=== PATIENT | male | born 1990 | race Caucasian/White ===

== ENCOUNTER 2016-06-29 09:18 | Emergency (ER) | payer OTHER ==
[2016-06-29] MEDS ORDERED: SODIUM CHLORIDE 0.9% 2,000 ML IV STA (09:53)
[2016-06-29] MEDS ORDERED: METOCLOPRAMIDE 5 MG/ML 2 ML VIAL IVP STA (09:53)
[2016-06-29] MEDS ORDERED: ACETAMINOPHEN IV (For NPO) 1,000 MG in EMPTY BAG 1 BAG IVPB ONE (09:53)
--- NOTE | 2016-06-29 09:56 | ED ---
Nausea/Vomiting/Diarrhea HPI - General Chief complaint: Nausea/Vomiting/Diarrhea Stated complaint: lost 30 lbs in a week, vomiting, acid stomach Time Seen by Provider: 06/29/16 09:36 Source: patient, RN notes reviewed Mode of arrival: ambulatory Limitations: no limitations - History of Present Illness Initial comments: 26-year-old male presents to the emergency department with a chief complaint of nausea vomiting and diarrhea. Patient states he's had nausea vomiting and diarrhea for the past week or so. Patient states he feels as if he's lost 30 pounds. States every time we will vomiting following it. Patient states he is now getting burning up his esophagus vomiting. Patient admits mild epigastric pain. Patient states she has not eaten much is not had bowel movements but does have some diarrhea take bony stool. Patient states he has felt hot and cold throughout this as well. Patient states he is concerned because he just was not getting any better so he thought that he should be seen. Patient states he does donate plasma and he did do it quite often so he is wondering if maybe that has something to do with how long he has been L. Patient denies any other symptoms at this time. Patient denies any recent shortness of breath, chest pain, back pain, numbness or tingling, dysuria or hematuria, constipation , headaches or visual changes, or any other current symptoms. - Related Data Previous Rx's Medication Instructions Recorded Famotidine [Pepcid] 20 mg PO BID #10 tablet 06/29/16 Ibuprofen [Motrin] 600 mg PO Q6HR PRN #20 tab 06/29/16 Allergies Allergy/AdvReac Type Severity Reaction Status Date / Time No Known Allergies Allergy Verified 06/29/16 11:31 Review of Systems ROS Statement: Those systems with pertinent positive or pertinent negative responses have been documented in the HPI. ROS Other: All systems not noted in ROS Statement are negative. Past Medical History Past Medical History: GERD/Reflux, Hypertension Additional Past Medical History / Comment(s): Gastritis, GALLBLADDER ATTACKS STARTING BEGINNING OF 2014 History of Any Multi-Drug Resistant Organisms: None Reported Past Surgical History: Cholecystectomy Past Anesthesia/Blood Transfusion Reactions: Unable to Obtain Past Psychological History: ADD/ADHD, Bipolar Smoking Status: Current every day smoker Past Alcohol Use History: None Reported, Daily Additional Past Alcohol Use History / Comment(s): 20 PACK OR BEER DAILY Past Drug Use History: Cocaine, Marijuana, Methamphetamine Additional Drug Use History / Comment(s): CURRENT MARIJUANA DAILY. PAST COCAINE USE 1 YEAR AGO. METHAMPHETAMINE USE APPROX 2 WEEKS AGO - Past Family History Father Family Medical History: No Reported History General Exam - General Exam Comments Initial Comments: General: The patient is awake and alert, in no distress, and does not appear acutely ill. Eye: Pupils are equal, round and reactive to light, extra-ocular movements are intact; there is normal conjunctiva bilaterally. No signs of icterus. Ears, nose, mouth and throat: There are moist mucous membranes and no oral lesions. Neck: The neck is supple, there is no tenderness. Cardiovascular: There is a regular rate and rhythm. No murmur, rub or gallop is appreciated. Respiratory: Lungs are clear to auscultation, respirations are non-labored, breath sounds are equal. No wheezes, stridor, rales, or rhonchi. Gastrointestinal: Soft, non-distended, non-tender abdomen without masses or organomegaly noted. There is no rebound or guarding present. No CVA tenderness. Bowel sounds are unremarkable. Back: There is no tenderness to palpation in the midline. There is no obvious deformity. No rashes noted. Musculoskeletal: Normal ROM, no tenderness, There is no pedal edema. There is no calf tenderness or swelling. Sensation intact. Pulses equal bilaterally 2+. Neurological: CN II-XII intact, There are no obvious motor or sensory deficits. Coordination appears grossly intact. Speech is normal. Skin: Skin is warm and dry and no rashes or lesions are noted. Psychiatric: Cooperative, appropriate mood & affect, normal judgment. Limitations: no limitations Course Vital Signs 06/29/16 06/29/16 06/29/16 09:43 10:19 11:36 Temperature 99.4 F Pulse Rate 105 H Pulse Rate [ 121 H 118 H Sitting] Pulse Rate [ 117 H 126 H Standing] Pulse Rate [ 100 108 H Supine] Respiratory 22 Rate Blood Pressure 141/91 Blood Pressure 138/83 143/86 [Sitting] Blood Pressure 132/79 136/85 [Standing] Blood Pressure 140/89 141/76 [Supine] O2 Sat by Pulse 96 Oximetry Procedures - Procedures Initial comment: Patient states he is much better at this time. Medical Decision Making - Medical Decision Making 26-year-old male presents emergency Department chief complaint of nausea vomiting. At this time patient was found to be orthostatic on presentation after 2 L orthostatics has resolved. Patient still does have some tachycardia however there is still mild low-grade fever. We will give Motrin at this time. We discussed the patient is influenza be positive. We discussed continuing Motrin Tylenol home. We will give him Zofran for his nausea vomiting. Patient is in good and all questions have been answered. He will be discharged. - Lab Data Result diagrams: 06/29/16 10:10 06/29/16 10:10 Lab Results 06/29/16 06/29/16 06/29/16 Range/Units 10:10 10:10 10:10 WBC 8.0 (3.8-10.6) k/uL RBC 5.78 (4.30-5.90) m/uL Hgb 17.1 (13.0-17.5) gm/dL Hct 51.0 (39.0-53.0) % MCV 88.2 (80.0-100.0) fL MCH 29.6 (25.0-35.0) pg MCHC 33.6 (31.0-37.0) g/dL RDW 13.7 (11.5-15.5) % Plt Count 167 (150-450) k/uL Neutrophils % 74 % Lymphocytes % 17 % Monocytes % 6 % Eosinophils % 0 % Basophils % 0 % Neutrophils # 5.9 (1.3-7.7) k/uL Lymphocytes # 1.4 (1.0-4.8) k/uL Monocytes # 0.5 (0-1.0) k/uL Eosinophils # 0.0 (0-0.7) k/uL Basophils # 0.0 (0-0.2) k/uL Sodium 137 (137-145) mmol/L Potassium 4.2 (3.5-5.1) mmol/L Chloride 99 (98-107) mmol/L Carbon Dioxide 21 L (22-30) mmol/L Anion Gap 17 mmol/L BUN 23 H (9-20) mg/dL Creatinine 1.14 (0.66-1.25) mg/dL Est GFR (MDRD) Af Amer >60 (>60 ml/min/1.73 sqM) Est GFR (MDRD) Non-Af >60 (>60 ml/min/1.73 sqM) Glucose 109 H (74-99) mg/dL Plasma Lactic Acid Rudi 1.4 (0.7-2.0) mmol/L Calcium 9.4 (8.4-10.2) mg/dL Total Bilirubin 0.7 (0.2-1.3) mg/dL AST 59 (17-59) U/L ALT 77 H (21-72) U/L Alkaline Phosphatase 66 (38-126) U/L Total Protein 7.7 (6.3-8.2) g/dL Albumin 4.7 (3.5-5.0) g/dL Amylase 44 (30-110) U/L Lipase 72 (23-300) U/L Urine Color Urine Appearance (Clear) Urine pH (5.0-8.0) Ur Specific [place] (1.001-1.035) Urine Protein (Negative) Urine Glucose (UA) (Negative) Urine Ketones (Negative) Urine Blood (Negative) Urine Nitrite (Negative) Urine Bilirubin (Negative) Urine Urobilinogen (<2.0) mg/dL Ur Leukocyte Esterase (Negative) Urine RBC (0-5) /hpf Urine WBC (0-5) /hpf Ur Squamous Epith Cells (0-4) /hpf Urine Bacteria (None) /hpf Hyaline Casts (0-2) /lpf Urine Mucus (None) /hpf Acetone, Qual Positive (Negative) Influenza Type A RNA (Not Detectd) Influenza Type B (PCR) (Not Detectd) 06/29/16 06/29/16 Range/Units 10:10 10:35 WBC (3.8-10.6) k/uL RBC (4.30-5.90) m/uL Hgb (13.0-17.5) gm/dL Hct (39.0-53.0) % MCV (80.0-100.0) fL MCH (25.0-35.0) pg MCHC (31.0-37.0) g/dL RDW (11.5-15.5) % Plt Count (150-450) k/uL Neutrophils % % Lymphocytes % % Monocytes % % Eosinophils % % Basophils % % Neutrophils # (1.3-7.7) k/uL Lymphocytes # (1.0-4.8) k/uL Monocytes # (0-1.0) k/uL Eosinophils # (0-0.7) k/uL Basophils # (0-0.2) k/uL Sodium (137-145) mmol/L Potassium (3.5-5.1) mmol/L Chloride (98-107) mmol/L Carbon Dioxide (22-30) mmol/L Anion Gap mmol/L BUN (9-20) mg/dL Creatinine (0.66-1.25) mg/dL Est GFR (MDRD) Af Amer (>60 ml/min/1.73 sqM) Est GFR (MDRD) Non-Af (>60 ml/min/1.73 sqM) Glucose (74-99) mg/dL Plasma Lactic Acid Rudi (0.7-2.0) mmol/L Calcium (8.4-10.2) mg/dL Total Bilirubin (0.2-1.3) mg/dL AST (17-59) U/L ALT (21-72) U/L Alkaline Phosphatase (38-126) U/L Total Protein (6.3-8.2) g/dL Albumin (3.5-5.0) g/dL Amylase (30-110) U/L Lipase (23-300) U/L Urine Color Dark Yellow Urine Appearance Cloudy (Clear) Urine pH 5.5 (5.0-8.0) Ur Specific [place] 1.027 (1.001-1.035) Urine Protein 2+ H (Negative) Urine Glucose (UA) Negative (Negative) Urine Ketones 2+ H (Negative) Urine Blood Negative (Negative) Urine Nitrite Negative (Negative) Urine Bilirubin 1+ H (Negative) Urine Urobilinogen 2.0 (<2.0) mg/dL Ur Leukocyte Esterase Negative (Negative) Urine RBC 1 (0-5) /hpf Urine WBC 5 (0-5) /hpf Ur Squamous Epith Cells <1 (0-4) /hpf Urine Bacteria Rare H (None) /hpf Hyaline Casts 18 H (0-2) /lpf Urine Mucus Moderate H (None) /hpf Acetone, Qual (Negative) Influenza Type A RNA Not Detected (Not Detectd) Influenza Type B (PCR) Detected H (Not Detectd) Disposition Clinical Impression: Influenza B Disposition: HOME SELF-CARE Condition: Stable Instructions: Influenza (ED) Additional Instructions: Please use medication as discussed. Please follow up with family doctor if symptoms have not improved over the next two days. Please return to the emergency room if your symptoms increase or worsen or for any other concerns. Prescriptions: Famotidine [Pepcid] 20 mg PO BID #10 tablet Ibuprofen [Motrin] 600 mg PO Q6HR PRN #20 tab PRN Reason: Fever Referrals: Sada Winkler MD [Primary Care Provider] - 1-2 days Time of Disposition: 12:58
[2016-06-29 10:38] LABS: Basophils % (A) 0 %; CH 30.3; CHCM 34.4; Eosinophils % (A) 0 %; HDW 2.47; HGB 17.1 gm/dL (13.0-17.5); Luc # (Auto) 0.21; Luc % (Auto) 3; Lymphocytes # (A) 1.4 k/uL (1.0-4.8); Lymphocytes % (A) 17 %; MCH 29.6 pg (25.0-35.0); MCHC 33.6 g/dL (31.0-37.0); MCV 88.2 fL (80.0-100.0); Mean Platelet Volume 8.4; Monocytes # (A) 0.5 k/uL (0-1.0); Monocytes % (A) 6 %; Neutrophils # (A) 5.9 k/uL (1.3-7.7); Neutrophils % (A) 74 %; RBC 5.78 m/uL (4.30-5.90); RDW 13.7 % (11.5-15.5); WBC (Perox) 7.99
[2016-06-29 10:47] LABS: ALT 77 U/L (21-72); AST 59 U/L (17-59); Alkaline Phosphatase 66 U/L (38-126); Amylase 44 U/L (30-110); Anion Gap 17 mmol/L; Blood Urea Nitrogen 23 mg/dL (9-20); Calcium 9.4 mg/dL (8.4-10.2); Carbon Dioxide 21 mmol/L (22-30); Chloride 99 mmol/L (98-107); Glucose 109 mg/dL (74-99); Non-African American GFR(MDRD) >60 (>60 ml/min/1.73 sqM); Potassium 4.2 mmol/L (3.5-5.1); Sodium 137 mmol/L (137-145); Total Bilirubin 0.7 mg/dL (0.2-1.3); Total Protein 7.7 g/dL (6.3-8.2)
[2016-06-29 11:04] LABS: Appearance,Urine Cloudy (Clear); Bacteria,Urine Rare /hpf; Bilirubin,Urine 1+ (Negative); Glucose,Urine (UA) Negative (Negative); Ketones,Urine 2+ (Negative); Leukocyte Esterase,Urine Negative (Negative); Mucus,Urine Moderate /hpf; Nitrite,Urine Negative (Negative); PH, Urine 5.5 (5.0-8.0); Particle Count 21270; Protein,Urine 2+ (Negative); RBC,Urine 1 /hpf (0-5); Specific Gravity,Urine 1.027 (1.001-1.035); Squamous Epithelial Cell,Urine <1 /hpf (0-4); UA Billing (MACRO vs. MICRO) MICRO; WBC,Urine 5 /hpf (0-5)
--- NOTE | 2016-06-29 11:23 | XR ---
2 view abdomen HISTORY: Nausea and vomiting 2 views of the abdomen on 4 images correlated to prior abdomen 02/05/2014 Lung bases are clear. Surgical clips are present in the right upper quadrant. There is no bowel obstr uction or pneumoperitoneum. No pathologic calcification. IMPRESSION: Nonspecific bowel gas pattern
[2016-06-29] MEDS ORDERED: MAG HYDROX/AL HYDROX/SIMETH 30 ML, HYOSCYAMINE ELIXIR 10 ML, CIMETIDINE HCL 300 MG, LID... PO STA ×4 (11:29)
[2016-06-29] MEDS ORDERED: IBUPROFEN 600 MG TAB PO STA (12:56)
[2016-06-29 13:20] VITALS: BP 146/83; PULSE 96; RESP 18; TEMP 98.7
== END 2016-06-29 13:23 | disposition home or self-care (01) ==
LOC: EC 09:18
DX: J10.1 Influenza due to other identified influenza virus with other respiratory manifestations (principal); R00.0 Tachycardia, unspecified; R10.13 Epigastric pain; F17.200 Nicotine dependence, unspecified, uncomplicated; Z90.49 Acquired absence of other specified parts of digestive tract
CPT/HCPCS: 99284 ×2; 96374 ×2; 96375 ×2; 96361 ×3; 36415; 80053; 82150; 82009; 83605; 83690; 85025; 81001; 87040; 87502; 74020; J2765; J0131

== ENCOUNTER 2017-02-22 12:39 | Emergency (ER) | payer OTHER ==
[2017-02-22 13:09] VITALS: BP 154/84; PULSE 98; RESP 18; TEMP 97.8
[2017-02-22] MEDS ORDERED: DIPH,PERTUS(ACELL)TETVAC-LF 0.5 ML VIAL IM ONE (13:16)
--- NOTE | 2017-02-22 14:04 | XR ---
EXAMINATION TYPE: XR foot complete LT , 3 VIEWS DATE OF EXAM ORDERED: 02/22/2017 HISTORY: Pain. COMPARISON: Previous study dated 09/17/1997. FINDINGS: No fracture, dislocation or radiopaque foreign body is seen.. IMPRESSION: NO ACUTE OSSEOUS LESION.
--- NOTE | 2017-02-22 14:22 | ED ---
Extremity Problem HPI - General Chief complaint: Extremity Problem,Nontraumatic Stated complaint: Stepped on graham fence Time Seen by Provider: 02/22/17 13:16 Source: patient Mode of arrival: ambulatory Limitations: no limitations - History of Present Illness Initial comments: Patient is a 26-year-old male presenting to the emergency department with chief complaint of left foot pain. Patient states he stepped on graham fence pole approximately 1 hour prior to arrival. Patient states he washed his wound with water prior to arrival. Patient is currently complaining of a achy pain rated 4 out of 10 but no exacerbating or relieving factors. Patient denies recent illness, fevers, nausea, vomiting, shortness of breath, chest pain , abdominal pain, numbness or tingling. Patient denies similar episodes in past. Patient is unsure when he last had his tetanus immunization. - Related Data Previous Rx's Medication Instructions Recorded Famotidine [Pepcid] 20 mg PO BID #10 tablet 06/29/16 Ibuprofen [Motrin] 600 mg PO Q6HR PRN #20 tab 06/29/16 Ciprofloxacin HCl [Cipro] 500 mg PO Q12HR #20 tablet 02/22/17 Allergies Allergy/AdvReac Type Severity Reaction Status Date / Time No Known Allergies Allergy Verified 02/22/17 13:10 Review of Systems ROS Statement: Those systems with pertinent positive or pertinent negative responses have been documented in the HPI. ROS Other: All systems not noted in ROS Statement are negative. Past Medical History Past Medical History: GERD/Reflux, Hypertension Additional Past Medical History / Comment(s): Gastritis, GALLBLADDER ATTACKS STARTING BEGINNING OF 2014 History of Any Multi-Drug Resistant Organisms: None Reported Past Surgical History: Cholecystectomy Past Anesthesia/Blood Transfusion Reactions: Unable to Obtain Past Psychological History: ADD/ADHD, Bipolar Smoking Status: Current every day smoker Past Alcohol Use History: None Reported, Daily Past Drug Use History: Cocaine, Marijuana, Methamphetamine - Past Family History Father Family Medical History: No Reported History General Exam - General Exam Comments Initial Comments: GENERAL: Pt awake and alert, well-appearing, well-nourished, and in no acute distress. HEAD: Atraumatic, normocephalic. EYES: Pupils equal, round, and reactive to light, sclera anicteric, conjunctiva are normal. ENT: Moist mucous membranes. NECK:Normal range of motion, supple without lymphadenopathy. LUNGS: Breath sounds clear to auscultation bilaterally. No wheezes, rales, or rhonchi. HEART: Heart S1, S2, no S3 or S4. Regular rate and rhythm. No murmurs, rubs or gallops. ABDOMEN: Soft, nontender, nondistended, normoactive bowel sounds. No guarding, no rebound. No masses or organomegaly appreciated. MUSCULOSKELETAL: Normal ROM of all extremities. Strength 5/5. EXTREMITIES: 2+ peripheral pulses. No edema. NEUROLOGICAL: Pt oriented x 3. Cranial nerves II through XII grossly intact. Strength and sensation grossly intact. PSYCH: Normal mood, normal affect. SKIN: 2 x 2 centimeter skin avulsion of dermis noted to plantar aspect of left forefoot. Limitations: no limitations Course Vital Signs 02/22/17 13:08 Temperature 97.8 F Pulse Rate 98 Respiratory 18 Rate Blood Pressure 154/84 O2 Sat by Pulse 97 Oximetry Medical Decision Making - Medical Decision Making Skin avulsion to plantar aspect of left forefoot. Wound irrigated extensively. No evidence of foreign body. X-ray of left foot without fracture, dislocation , or foreign body. Patient placed on Cipro and educated on wound management. Patient instructed to follow-up with primary care physician. Patient started to return to the emergency department with any new or worsening symptoms. Patient agrees with treatment plan. Discharge instructions and return parameters reviewed. - Radiology Data Radiology results: report reviewed X-ray left foot: No fracture, dislocation, or radiopaque foreign body is seen. Disposition Clinical Impression: Avulsion of skin of right foot Disposition: HOME SELF-CARE Condition: Good Instructions: Skin Avulsion (ED) Additional Instructions: Finish antibiotic as prescribed. Soak foot in warm soapy water 2-3 times daily 15-20 minutes. Apply triple antibiotic ointment 2 times daily. Apply dressing. Avoid weightbearing. Continue Motrin or Tylenol for pain. Follow- up with primary care physician in 48-72 hours for wound check. Please return to emergency department with any new or worsening symptoms. Prescriptions: Ciprofloxacin HCl [Cipro] 500 mg PO Q12HR #20 tablet Referrals: Sada Winkler MD [Primary Care Provider] - 1-2 days Time of Disposition: 14:22
== END 2017-02-22 14:32 | disposition home or self-care (01) ==
LOC: EC 12:39
DX: S91.302A Unspecified open wound, left foot, initial encounter (principal); F17.200 Nicotine dependence, unspecified, uncomplicated; Z23 Encounter for immunization; W22.09XA Striking against other stationary object, initial encounter
CPT/HCPCS: 90471; 90715; 99283

== ENCOUNTER 2024-07-22 10:51 | Emergency (ER) | payer BC ==
--- NOTE | 2024-07-22 11:19 | ED ---
General Adult HPI - General Chief complaint: Chest Pain Stated complaint: Chest Pain Time Seen by Provider: 07/22/24 11:04 Source: patient, RN notes reviewed, old records reviewed Mode of arrival: ambulatory Limitations: no limitations - History of Present Illness Initial comments: 34-year-old male presents with an episode of lower chest and epigastric pain. 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 He denies prior history of CAD. Denies history of DVT or PE. He denies current drug or alcohol use. Patient states the pain is improved at the time my evaluation. No vomiting. - Related Data Home Medications Medication Instructions Recorded Confirmed No Known Home Medications 07/22/24 07/22/24 Allergies Allergy/AdvReac Type Severity Reaction Status Date / Time No Known Allergies Allergy Verified 07/22/24 11:35 Review of Systems ROS Statement: Those systems with pertinent positive or pertinent negative responses have been documented in the HPI. ROS Other: All systems not noted in ROS Statement are negative. Past Medical History Past Medical History: GERD/Reflux, Hypertension Additional Past Medical History / Comment(s): HX GASTRITIS., STATES OCCASIONAL VOMITING., STATES HE QUIT TAKING BP MEDS. History of Any Multi-Drug Resistant Organisms: None Reported Past Surgical History: Cholecystectomy Past Anesthesia/Blood Transfusion Reactions: No Reported Reaction, Motion Sickness Past Psychological History: ADD/ADHD, Bipolar, Depression Smoking Status: Never smoker Past Alcohol Use History: Daily Past Drug Use History: Cocaine, Marijuana, Methamphetamine - Past Family History Father Family Medical History: No Reported History General Exam Limitations: no limitations General appearance: alert, in no apparent distress Head exam: Present: atraumatic, normocephalic Eye exam: Present: normal appearance, PERRL ENT exam: Present: normal exam Neck exam: Present: normal inspection. Absent: tenderness, meningismus Respiratory exam: Present: normal lung sounds bilaterally. Absent: respiratory distress, wheezes Cardiovascular Exam: Present: regular rate, normal rhythm GI/Abdominal exam: Present: soft. Absent: distended, tenderness, guarding, rebound, rigid Extremities exam: Present: normal inspection, normal capillary refill. Absent: pedal edema, calf tenderness Neurological exam: Present: alert, oriented X3, CN II-XII intact. Absent: motor sensory deficit Psychiatric exam: Present: normal affect, normal mood Skin exam: Present: warm, dry, intact. Absent: cyanosis, diaphoretic Course Vital Signs 07/22/24 07/22/24 07/22/24 10:55 10:57 11:38 Temperature 97.9 F Pulse Rate 70 69 Pulse Rate [ 67 [employer] ] Respiratory 17 18 Rate Blood Pressure 156/106 142/98 O2 Sat by Pulse 98 97 Oximetry 07/22/24 07/22/24 07/22/24 11:46 12:00 13:00 Temperature Pulse Rate 56 L 64 65 Pulse Rate [ [employer] ] Respiratory 18 18 18 Rate Blood Pressure 148/101 140/94 133/83 O2 Sat by Pulse 96 97 98 Oximetry 07/22/24 13:17 Temperature Pulse Rate 60 Pulse Rate [ [employer] ] Respiratory 18 Rate Blood Pressure 146/92 O2 Sat by Pulse 97 Oximetry Medical Decision Making - Medical Decision Making Was pt. sent in by a medical professional or institution (, [place], [employer], urgent care, hospital, or long term...) When possible be specific @ -No Did you speak to anyone other than the patient for history (EMS, parent, family, police, friend...)? What history was obtained from this source @ -No Did you review nursing and triage notes (agree or disagree)? Why? @ -I reviewed and agree with nursing and triage notes Were old charts reviewed (outside hosp., previous admission, EMS record, old EKG, old radiological studies, urgent care reports/EKG's, long term records)? Report findings @ -No old charts were reviewed Differential Chest Pain: Stable Angina, Unstable Angina, STEMI, NSTEMI Aortic Dissection, Pneumothorax, Musculoskeletal, Esophageal Spasm GERD, Cholecystitis, Pancreatitis, Zoster, this is not meant to be an all-inclusive list. EKG interpreted by me (3pts min.). @ -Sinus rhythm rate of 69, IN interval 172, QRS duration 113, QTc 397, no ST segment elevation X-rays interpreted by me (1pt min.). @ -[Chest x-ray is negative for acute cardiopulmonary disease CT interpreted by me (1pt min.). @ -None done U/S interpreted by me (1pt. min.). @ -None done What testing was considered but not performed or refused? (CT, X-rays, U/S, labs)? Why? @ -None What meds were considered but not given or refused? Why? @ -None Did you discuss the management of the patient with other professionals (professionals i.e. , [place], [employer], lab, RT, psych nurse, social media assistant, metal work duct installer, teacher, chief supply chain officer, shoe caser)? Give summary @ -No Was smoking cessation discussed for >3mins.? @ -No Was critical care preformed (if so, how long)? @ -No Were there social determinants of health that impacted care today? How? (Homelessness, low income, unemployed, alcoholism, drug addiction, transportation, low edu. Level, literacy, decrease access to med. care, snf, rehab)? @ -No Was there de-escalation of care discussed even if they declined (Discuss DNR or withdrawal of care, Hospice)? DNR status @ -No What co-morbidities impacted this encounter? (DM, HTN, Smoking, COPD, CAD, Cancer, CVA, ARF, Chemo, Hep., AIDS, mental health diagnosis, sleep apnea, morbid obesity)? @ -None Was patient admitted / discharged? Hospital course, mention meds given and route, prescriptions, significant lab abnormalities, going to OR and other pertinent info. 34-year-old male with an episode of chest pain. EKG sinus rhythm without ST segment elevation. Chest x-ray is clear, normal mediastinum. I did perform initial workup including CBC, CMP, troponin and D-dimer. This was unremarkable. Patient reevaluated, resting comfortably. I did perform a second troponin in the emergency department which was again negative. Patient is stable for discharge at this time with close return parameters and PCP follow-up Were any procedures done? @ -No Diagnosis/symptom? @ -Chest pain Acute, or Chronic, or Acute on Chronic? @ -acute Uncomplicated (without systemic symptoms) or Complicated (systemic symptoms)? @ -Default Side effects of treatment? @ -No Exacerbation, Progression, or Severe Exacerbation? @ -No Poses a threat to life or bodily function? How? (Chest pain, [place], CA, pneumonia, PE, COPD, DKA, ARF, appy, cholecystitis, CVA, Diverticulitis, Homicidal, Suicidal, threat to staff... and all critical care pts) @ -low risk - Lab Data Result diagrams: 07/22/24 11:32 07/22/24 11:32 Lab Results 07/22/24 07/22/24 07/22/24 Range/Units 11:32 11:32 11:32 WBC 7.14 (4.50-10.00) 10*3/uL RBC 4.86 (4.40-5.60) 10*6/uL Hgb 14.9 (13.0-17.0) g/dL Hct 43.8 (39.6-50.0) % MCV 90.1 (80.0-97.0) fL MCH 30.7 (27.0-32.0) pg MCHC 34.0 (32.0-37.0) g/dL Plt Count 193 (140-440) 10*3/uL MPV 11.4 (9.5-12.2) fL Immature Gran % (Auto) 0.3 % Neutrophils % 66.7 % Lymphocytes % 25.1 % Monocytes % 4.9 % Eosinophils % 2.4 % Basophils % 0.6 % Immature Gran # 0.02 (0.00-0.04) 10*3/uL Neutrophils # 4.77 (1.80-7.70) 10*3/uL Lymphocytes # 1.79 (0.90-5.00) 10*3/uL Monocytes # 0.35 (0.20-1.00) 10*3/uL Eosinophils # 0.17 (0.04-0.35) 10*3/uL Basophils # 0.04 (0.00-0.10) 10*3/uL PT 10.9 (10.0-12.5) sec INR 1.0 (<1.2) APTT 24.6 (22.0-30.0) sec D-Dimer <0.17 (<0.60) mg/L FEU Sodium 137 (137-145) mmol/L Potassium 4.0 (3.5-5.1) mmol/L Chloride 105 (98-107) mmol/L Carbon Dioxide 25 (22-30) mmol/L Anion Gap 7 mmol/L BUN 18 (9-20) mg/dL Creatinine 0.82 (0.66-1.25) mg/dL Est GFR (CKD-EPI)AfAm >90 (>60 ml/min/1.73 sqM) Est GFR (CKD-EPI)NonAf >90 (>60 ml/min/1.73 sqM) Glucose 104 H (74-99) mg/dL Calcium 9.6 (8.4-10.2) mg/dL Magnesium 1.7 (1.6-2.3) mg/dL Total Bilirubin 0.9 (0.2-1.3) mg/dL AST 34 (17-59) U/L ALT 39 (4-49) U/L Alkaline Phosphatase 61 (38-126) U/L Troponin I (0.000-0.034) ng/mL Total Protein 7.4 (6.3-8.2) g/dL Albumin 4.7 (3.5-5.0) g/dL Lipase 63 (23-300) U/L 07/22/24 07/22/24 Range/Units 11:32 13:14 WBC (4.50-10.00) 10*3/uL RBC (4.40-5.60) 10*6/uL Hgb (13.0-17.0) g/dL Hct (39.6-50.0) % MCV (80.0-97.0) fL MCH (27.0-32.0) pg MCHC (32.0-37.0) g/dL Plt Count (140-440) 10*3/uL MPV (9.5-12.2) fL Immature Gran % (Auto) % Neutrophils % % Lymphocytes % % Monocytes % % Eosinophils % % Basophils % % Immature Gran # (0.00-0.04) 10*3/uL Neutrophils # (1.80-7.70) 10*3/uL Lymphocytes # (0.90-5.00) 10*3/uL Monocytes # (0.20-1.00) 10*3/uL Eosinophils # (0.04-0.35) 10*3/uL Basophils # (0.00-0.10) 10*3/uL PT (10.0-12.5) sec INR (<1.2) APTT (22.0-30.0) sec D-Dimer (<0.60) mg/L FEU Sodium (137-145) mmol/L Potassium (3.5-5.1) mmol/L Chloride (98-107) mmol/L Carbon Dioxide (22-30) mmol/L Anion Gap mmol/L BUN (9-20) mg/dL Creatinine (0.66-1.25) mg/dL Est GFR (CKD-EPI)AfAm (>60 ml/min/1.73 sqM) Est GFR (CKD-EPI)NonAf (>60 ml/min/1.73 sqM) Glucose (74-99) mg/dL Calcium (8.4-10.2) mg/dL Magnesium (1.6-2.3) mg/dL Total Bilirubin (0.2-1.3) mg/dL AST (17-59) U/L ALT (4-49) U/L Alkaline Phosphatase (38-126) U/L Troponin I <0.012 <0.012 (0.000-0.034) ng/mL Total Protein (6.3-8.2) g/dL Albumin (3.5-5.0) g/dL Lipase (23-300) U/L Disposition Clinical Impression: Chest pain Disposition: HOME SELF-CARE Condition: Fair Instructions (If sedation given, give patient instructions): Chest Pain (ED) Is patient prescribed a controlled substance at d/c from ED?: No Referrals: None,Stated [Primary Care Provider] - 1-2 days Time of Disposition: 14:08
[2024-07-22 11:40] LABS: Basophils # (A) 0.04 10*3/uL (0.00-0.10); Basophils % (A) 0.6 %; Eosinophils # (A) 0.17 10*3/uL (0.04-0.35); Eosinophils % (A) 2.4 %; HCT 43.8 % (39.6-50.0); HGB 14.9 g/dL (13.0-17.0); Lymphocytes # (A) 1.79 10*3/uL (0.90-5.00); Lymphocytes % (A) 25.1 %; MCH 30.7 pg (27.0-32.0); MCV 90.1 fL (80.0-97.0); Mean Platelet Volume 11.4 fL (9.5-12.2); Monocytes # (A) 0.35 10*3/uL (0.20-1.00); Monocytes % (A) 4.9 %; Neutrophils # (A) 4.77 10*3/uL (1.80-7.70); Neutrophils % (A) 66.7 %; Platelet Count 193 10*3/uL (140-440); RBC 4.86 10*6/uL (4.40-5.60); RDW 13.2 % (11.5-14.5); WBC 7.14 10*3/uL (4.50-10.00)
[2024-07-22 11:55] LABS: ALT 39 U/L (4-49); AST 34 U/L (17-59); African American GFR (CKD) >90 (>60 ml/min/1.73 sqM); Albumin 4.7 g/dL (3.5-5.0); Alkaline Phosphatase 61 U/L (38-126); Anion Gap 7 mmol/L; Blood Urea Nitrogen 18 mg/dL (9-20); Calcium 9.6 mg/dL (8.4-10.2); Carbon Dioxide 25 mmol/L (22-30); Chloride 105 mmol/L (98-107); Glucose 104 mg/dL (74-99); Lipase 63 U/L (23-300); Magnesium 1.7 mg/dL (1.6-2.3); Non-African American GFR(CKD) >90 (>60 ml/min/1.73 sqM); Sodium 137 mmol/L (137-145); Total Bilirubin 0.9 mg/dL (0.2-1.3); Total Protein 7.4 g/dL (6.3-8.2)
[2024-07-22 11:59] LABS: Partial Thromboplastin Time 24.6 sec (22.0-30.0); Prothrombin Time 10.9 sec (10.0-12.5)
--- NOTE | 2024-07-22 12:05 | XR ---
EXAMINATION TYPE: XR chest 2V DATE OF EXAM: 07/22/2024 11:52 AM COMPARISON: 05/20/2024 CLINICAL INDICATION: Male, 34 years old with history of Chest Pain, TECHNIQUE: XR chest 2V view(s) obtained. FINDINGS: The heart size is normal. The pulmonary vasculature is normal. The lungs are clear. IMPRESSION: 1. No acute pulmonary process. [facility], , 07/22/2024 12:03 PM
[2024-07-22 15:20] VITALS: BP 144/86; PULSE 72; RESP 19; TEMP 98
== END 2024-07-22 15:20 | disposition home or self-care (01) ==
LOC: EC 10:51
DX: R07.9 Chest pain, unspecified (principal)
CPT/HCPCS: 36415; 71046; 80053; 83690; 83735; 84484; 85025; 85379; 85610; 85730; 93005; 99285